=== PATIENT | female | born 1980 | race Caucasian/White ===

== ENCOUNTER 2019-01-28 23:51 | Emergency (ER) | payer MEDICAID ==
[~2019-01-28] VITALS: Ht 149.9 cm; Wt 49.0 kg
[2019-01-28 23:55] VITALS: BP_SYST 124
[2019-01-29] MEDS ORDERED: IPRATROPIUM/ALBUTEROL SULFATE 3 ML AMPUL.NEB (DUONEB) INH ONE ×3 (00:30→02:00)
[2019-01-29] MEDS ORDERED: IPRATROPIUM/ALBUTEROL SULFATE 3 ML AMPUL.NEB (DUONEB) ONE (00:31)
[2019-01-29] MEDS ORDERED: methylPREDNISolone SOD SUCC/PF 62.5 MG/ML VIAL IM ONE (01:00)
[2019-01-29 04:09] VITALS: BP_SYST 122
== END 2019-01-29 04:09 | disposition home or self-care (01) ==
LOC: SED 23:51
DX: J45.901 Unspecified asthma with (acute) exacerbation (principal)
CPT/HCPCS: 71045; 81025; 94640; 96372; 99285; J2930; J7620; 99283; 99284

== ENCOUNTER 2019-11-01 16:31 | Emergency (ER) | payer MEDICAID ==
[~2019-11-01] VITALS: Ht 149.9 cm; Wt 54.4 kg
[2019-11-01 16:31] VITALS: BP_SYST 118
[2019-11-01] MEDS ORDERED: methylPREDNISolone SOD SUCC/PF 62.5 MG/ML VIAL IVP ONE (16:45)
[2019-11-01] MEDS ORDERED: ACETAMINOPHEN 500 MG TABLET PO ONE (16:45)
[2019-11-01] MEDS ORDERED: ALBUTEROL MDI INHALATION 8 GM INH INH ONE (16:45)
[2019-11-01] MEDS ORDERED: IPRATROPIUM BROM 0.5 MG/2.5 ML VIAL.NEB (ATROVENT) INH ONE (17:00)
[2019-11-01] MEDS ORDERED: ALBUTEROL SULFATE 0.083% 2.5 MG/3 ML VIAL.NEB INH ONE ×2 (17:00→18:45)
[2019-11-01 17:34] LABS: HEMATOCRIT 39.1 % (36-48); MEAN CORPUSCULAR HEMOGLOBIN 30 pg (27-31); MEAN CORPUSCULAR HGB CONC 33 % (32-36); MEAN CORPUSCULAR VOLUME 91 fL (79.0-98.0); PLATELET COUNT (AUTO) 423 K/uL (130-430); RED BLOOD CELL COUNT(AUTO) 4.33 MIL/uL (4.2-6.2); RED CELL DISTRIBUTION WIDTH 13.1 % (9.0-15.0); WHITE BLOOD COUNT (AUTO) 16.9 K/uL (4.8-10.8)
[2019-11-01 18:31] LABS: CALCIUM 8.5 mg/dL (8.4-11.0); CREATININE 0.63 mg/dL (0.55-1.30)
[2019-11-01 19:15] VITALS: BP_SYST 121
== END 2019-11-01 19:15 | disposition home or self-care (01) ==
LOC: SED 16:31
DX: J45.901 Unspecified asthma with (acute) exacerbation (principal); R06.02 Shortness of breath
CPT/HCPCS: 36415; 71045; 80048; 85025; 94640; 96374; 99284; J2930; J7613

== ENCOUNTER 2020-04-13 00:54 | Inpatient (IN) | payer MEDICAID, SELFPAY ==
[~2020-04-13] VITALS: Ht 152.4 cm; Wt 44.5 kg
[2020-04-13 00:54] VITALS: BP_SYST 128
--- NOTE | 2020-04-13 00:54 | NUR ---
Patient to ER bed 07 to gown for evaluation. Side rails up. Report given to GAETANO Rosario
--- NOTE | 2020-04-13 01:00 | NUR ---
# 20 gauge angiocath placed to RAC. Use of asceptic technique. Opsite placed over site. Blood return noted. Blood for lab drawn from site. Flushed with 10 cc of normal saline. No evidence of infiltration noted. Patient tolerated well.
--- NOTE | 2020-04-13 01:05 | NUR ---
ER at bedside examining patient.
--- NOTE | 2020-04-13 01:06 | NUR ---
Pt biba c/o L arm pain x 1 week. Pt reports using meth and noticing L arm pain w/ swelling and recent increase in chills. Pt L arm appears swollen, redness, and fluid like d/c. L arm is warm to touch. Pt rates pain 10/10. Denies fever, CP, sick contacts. NKA.
[2020-04-13] MEDS ORDERED: MORPHINE 2 MG/ML INJ. SYRINGE IVP ONE (01:15)
[2020-04-13] MEDS ORDERED: VANCOMYCIN HCL 1,000 MG in D5W 250 ML IV ONE (01:15)
[2020-04-13] MEDS ORDERED: NACL 0.9% 1,000 ML IV ONE (01:30)
[2020-04-13 01:37] LABS: HEMATOCRIT 34.6 % (36-48); HEMOGLOBIN 11.3 g/dL (12.0-16.0); MEAN CORPUSCULAR HEMOGLOBIN 29 pg (27-31); MEAN CORPUSCULAR HGB CONC 33 % (32-36); MEAN CORPUSCULAR VOLUME 88 fL (79.0-98.0); PLATELET COUNT (AUTO) 386 K/uL (130-430); RED BLOOD CELL COUNT(AUTO) 3.93 MIL/uL (4.2-6.2); RED CELL DISTRIBUTION WIDTH 14.1 % (9.0-15.0); WHITE BLOOD COUNT (AUTO) 25.5 K/uL (4.8-10.8)
--- NOTE | 2020-04-13 01:40 | NUR ---
Radiology at bedside.
[2020-04-13] MEDS ORDERED: VANCOMYCIN HCL 1000 MG/VIAL IV ONE (01:45)
[2020-04-13 01:50] LABS: CALCIUM 8.3 mg/dL (8.4-11.0); CREATININE 0.61 mg/dL (0.55-1.30); POTASSIUM 3.3 mmol/L (3.5-5.1)
[2020-04-13 01:54] LABS: PROTHROMBIN TIME 9.9 SECS (9.5-12.5)
[2020-04-13 01:55] LABS: ALBUMIN 2.6 g/dL (3.4-4.8); TOTAL BILIRUBIN 0.5 mg/dL (0.0-1.0)
[2020-04-13 02:16] LABS: ATYPICAL LYMPHOCYTES % 0 % (0-0); BAND % (MANUAL) 0 % (0-6); BASOPHILS % (MANUAL) 0 % (0-2); EOSINOPHILS % (MANUAL) 1 % (0-7); LYMPHOCYTES % (MANUAL) 8 % (20-46); MONOCYTES % (MANUAL) 1 % (0-11)
[2020-04-13 02:30] LABS: BILIRUBIN,URINE 1+ (NEGATIVE); BLOOD, URINE 2+ (NEGATIVE); CLARITY/URINE CLEAR (CLEAR); COLOR,URINE YELLOW (YELLOW); GLUCOSE,URINE NEGATIVE (NEGATIVE); KETONES,URINE TRACE (NEGATIVE); LEUKOCYTE ESTERASE ,URINE NEGATIVE (NEGATIVE); NITRITE, URINE NEGATIVE (NEGATIVE); PH,URINE 5.5 (5.0-8.0); PROTEIN URINE TRACE (NEGATIVE)
[2020-04-13] MEDS ORDERED: NS 500 ML IV ONE (02:30)
[2020-04-13 02:39] LABS: BACTERIA,URINE FEW /HPF (None Seen); CALCIUM OXALATE CRYSTALS,UR 0-10 /HPF (None Seen); WBC,URINE 0-3 /HPF (0-3)
--- NOTE | 2020-04-13 02:48 | NUR ---
Patient will be admitted to care of Admitted to tele unit. Belongings list completed. Complete and up to date summary report printed. SBAR report to be given at bedside with opportunity for questions.
--- NOTE | 2020-04-13 02:59 | NUR ---
EEnd of life care decisions discussed with PATIENT by Dr. BUI. Opportunity for questions and concerns addressed. Patient's code status is DNR paperwork completed and placed in chart.
[2020-04-13] MEDS ORDERED: POTASSIUM CHLORIDE 20 MEQ/PKT PACKET PO ONE (03:00)
[2020-04-13] MEDS ORDERED: MORPHINE 2 MG/ML INJ. SYRINGE IVP PRN (03:00)
[2020-04-13] MEDS ORDERED: ONDANSETRON HCL 4 MG/2 ML VIAL IVP PRN (03:00)
--- NOTE | 2020-04-13 03:23 | NUR ---
ADMISSION NOTE Received patient from ER via gurney. Patient admitted with diagnosis of CELLULITIS. Patient is awake, alert, oriented X 4. Patient oriented to hospital room, call light, toileting, pain management and safety-teach back done. Patient informed that AFFIE will be nurse and that their room number is 112B. Personal belongings checked and Belongings List documented. Call light within reach.
[2020-04-13 03:31] VITALS: BP_SYST 107
[2020-04-13] MEDS: NACL 0.9% 1,000 ML IV SCH ×2 (03:43→13:39)
[2020-04-13] MEDS: ACETAMINOPHEN 325 MG TABLET PO PRN ×3 (04:30→19:44)
--- NOTE | 2020-04-13 05:10 | NUR ---
CONSULTATION PAGED/CALLED Reason for Consultation: CELLULITIS Person Who was Notified: MACK Consulting Physician: JOSE Reconcilement Clerk Specialty:ID Ordering Physician: MITCHELL
--- NOTE | 2020-04-13 06:03 | NUR ---
RN ROUNDS: PATIENT IS AWAKE, ALERT AND ORIENTED X 4. REPORTS PAIN IN L ARM, RATES PAIN 3/10. PATIENT BREATHING UNLABORED AND EVEN. NO S/S ACUTE DISTRESS AT THIS TIME.IVF INFUSING AT ORDERED RATE, NO SIGN OF INFILTRATION NOTED. SAFETY AND FALL PRECAUTIONS MAINTAINED. CALL LIGHT IS WITH PATIENT. WILL ENDORSE PATIENT CARE TO DAY SHIFT RN.
--- NOTE | 2020-04-13 07:30 | NUR ---
Opening Note patient in bed a/o x4, no signs of distress noted, respirations even and unlabored, bed locked and at low position, call light within reach, fall and aspiration precautions put in place.
[2020-04-13 08:45] VITALS: BP_SYST 99
[2020-04-13] MEDS ORDERED: PANTOPRAZOLE SODIUM 40 MG/VIAL (PROTONIX) IVP SCH (09:00)
--- NOTE | 2020-04-13 09:27 | NUR ---
RN Rounds/Medications patient laying in bed, administered medications ordered per MD, patient tolerated well, safety measures maintained.
[2020-04-13] MEDS: CLINDAMYCIN 600 MG in D5W 50 ML IV SCH ×2 (09:51→15:14)
[2020-04-13 11:30] VITALS: BP_SYST 98
--- NOTE | 2020-04-13 11:56 | NUR ---
RN Rounds patient ambulated to restroom with no problem, no other needs at this time, safety precautions maintained.
[2020-04-13] MEDS ORDERED: VANCOMYCIN HCL 500 MG in NS 100 ML IV SCH (12:00)
--- NOTE | 2020-04-13 12:26 | NUR ---
[employer]: COMMERCIAL DRIVER'S LICENSE DRIVER received a homeless drug useage referral COMMERCIAL DRIVER'S LICENSE DRIVER met with pt. bedside. She was amenable to this interview. She maintained eye contact. Her answers coordinated with the questions and at times seemed emotional. Pt. confirmed the demographics on the face sheet. She confirmed that she is homeless with her for the past year. They stay in the car in various locations such as the [facility]. 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 She uses heroine. In the past she stated she uses various drugs. Pt. also has asthma and has her albuterol. When asked if she had ever participated in a sober living or detox program, pt. stated she was in assisted for a misdemeanor and it was during this time that she had to participate in a sober program (associated with her incarceration). Pt. did not want to state why she was in assisted. Pt. stated she has used drugs for many years. She did state she has had various times of sobriety. A couple of times she has been sober for up to 6-7 years at a time. She came to [place] about a year and a half from [place]. Her family is in [place]. Her husbands family is her local to [place]. She said when they moved here there were so many stressors. She had been sober, but her and her started out by using Xanax and then she began using drugs again. She has two adult children and one younger child who resides out of state with her older brother. When asked about mental health, pt. stated at one time she had been Dx. with Depression and Anxiety and was prescribed medication which she no longer takes. During this time, Rn came into the room. Pt. and COMMERCIAL DRIVER'S LICENSE DRIVER shared with her about pts. recollection re. mental health and the meds and asked Rn. if she could share with Dr. Ram. Rn mad a note of this. COMMERCIAL DRIVER'S LICENSE DRIVER shared with pt. numerous resources including, a homeless resource packet and showed pt. where she can look and call to find a PCP. MW shared with pt. homeless [facility] resources, and substance abuse resources. Lastly COMMERCIAL DRIVER'S LICENSE DRIVER explained to pt. about the MH component and advised pt. it would be beneficial to pt. Pt. agreed and stated she will take a look at all the resources. COMMERCIAL DRIVER'S LICENSE DRIVER gave pt. a business card as well. COMMERCIAL DRIVER'S LICENSE DRIVER will remain available as needed. Addendum: 04/13/20 at 1437 by Lori Presley COMMERCIAL DRIVER'S LICENSE DRIVER [employer]: note addition When asked pt. denied feeling suicidal at this time. She did state in the past she had been suicidal. When asked about interventions, pt. stated she began taking antidepressants.
--- NOTE | 2020-04-13 13:44 | NUR ---
RN Rounds Patient laying in bed, no signs of distress noted, administered medication ordered per MD, patient tolerated well, safety precautions maintained.
[2020-04-13 15:50] VITALS: BP_SYST 102
[2020-04-13] MEDS ORDERED: IBUPROFEN 400 MG TABLET PO PRN (17:30)
[2020-04-13] MEDS ORDERED: ACETAMINOPHEN 325 MG TABLET PO PRN (17:30)
[2020-04-13] MEDS ORDERED: POTASSIUM CHLORIDE 20 MEQ TAB.PRT.SR PO ONE (17:30)
--- NOTE | 2020-04-13 17:40 | NUR ---
MD Rounds Dr. Ram at bedside assessing patient.
[2020-04-13] MEDS ORDERED: ALBUTEROL MDI INHALATION 8 GM INH INH PRN (18:15)
--- NOTE | 2020-04-13 18:54 | NUR ---
Closing Note patient in bed a/o x4, no signs of distress noted, respirations even and unlabored, bed locked and at low position, call light within reach, fall and aspiration precautions maintained through out shift, patient care endorse to director of promotions nurse.
--- NOTE | 2020-04-13 19:15 | NUR ---
change of shift.pt.presents quiescent affect;calm,resting.pt.presents lt.upper extremity/hand edematous.wound noted @fossa. iv fluids infusing.pt.had inquired if she was to be d/c home.i appirsed the pt.that i am to review the 's orders.call light/telephone placed w/in access of the pt.
--- NOTE | 2020-04-13 19:30 | NUR ---
i reviewed martin's orders. did not provide d/c home orders.i have apprised the pt.pt.stated she wanted to go home.pt.requested pain medication. Addendum: 04/14/20 at 0206 by Brian Bird RN i have administered tylenol:650mg po.to assess the efficacy of the pain medication per pain mgx protocol.
[2020-04-13 20:00] VITALS: BP_SYST 102
--- NOTE | 2020-04-13 20:00 | NUR ---
pt.assessed.v/s assessed values w/in normal limits.i have provided the ama form sheet.i have d/c the iv access.i have d/c the sd id-band. nsg/pt.to review/account for pertenences.pt.stated security was provided w pertenences upon admission;to f/u w security.
--- NOTE | 2020-04-13 20:30 | NUR ---
pt.has signed the ama form sheet.i have witnessed the pt's signing.nsg/pt.accounted for pertenences;security provided pt's pertenences w/in security hold.security apprised of the pt's departure ama status.dr.chari young apprised of the pt's departure ama status.i have accompanied the pt.to the front lobby/doors.pt.accompanied in stable status.
[2020-04-14] MEDS ORDERED: FAMOTIDINE 20 MG TABLET PO SCH (09:00)
[2020-04-14] MEDS ORDERED: SERTRALINE HCL 50 MG TABLET PO SCH (09:00)
== END 2020-04-13 20:25 | disposition left against medical advice (07) | DRG 383 ==
LOC: SED 00:54 → STU 02:51
PROVIDERS: ADMIT Internal Medicine; ATTEND Internal Medicine
DX: L03.114 Cellulitis of left upper limb (principal); E43 Unspecified severe protein-calorie malnutrition; E87.1 Hypo-osmolality and hyponatremia; Z68.1 Body mass index [BMI] 19.9 or less, adult; E87.6 Hypokalemia; F11.20 Opioid dependence, uncomplicated; Z20.828 Contact with and (suspected) exposure to other viral communicable diseases; F32.9 Major depressive disorder, single episode, unspecified; J45.909 Unspecified asthma, uncomplicated; F19.10 Other psychoactive substance abuse, uncomplicated; Z53.29 Procedure and treatment not carried out because of patient's decision for other reasons; E87.2 Acidosis
CPT/HCPCS: 36415; 71045; 80053; 81000-TC; 83605; 85007; 85027; 85610-TC; 85730-TC; 87040-TC; 87081; 93005; 96365; 96366; 96375; 99285; C9113; G0378; J2270; J3370; J3490; J7030; J7040; J7060

== ENCOUNTER 2020-04-27 21:02 | Emergency (ER) | payer MEDICAID, SELFPAY ==
[~2020-04-27] VITALS: Ht 152.4 cm; Wt 45.4 kg
[2020-04-27 21:08] VITALS: BP_SYST 147
[2020-04-27] MEDS ORDERED: IPRATROPIUM/ALBUTEROL SULFATE 3 ML AMPUL.NEB (DUONEB) INH ONE (21:15)
[2020-04-27 22:15] VITALS: BP_SYST 147
== END 2020-04-27 22:15 ==
LOC: SED 21:02
DX: J45.901 Unspecified asthma with (acute) exacerbation (principal); Z20.828 Contact with and (suspected) exposure to other viral communicable diseases
CPT/HCPCS: 36415; 71045; 94640; 99284

== ENCOUNTER 2020-05-27 08:37 | Emergency (ER) | payer MEDICAID, SELFPAY ==
[~2020-05-27] VITALS: Ht 152.4 cm; Wt 45.4 kg
[2020-05-27 08:37] VITALS: BP_SYST 123
[2020-05-27] MEDS ORDERED: IPRATROPIUM/ALBUTEROL SULFATE 3 ML AMPUL.NEB (DUONEB) INH ONE ×3 (08:45→09:00)
[2020-05-27] MEDS ORDERED: predniSONE 20 MG TABLET PO ONE (09:00)
[2020-05-27 09:29] LABS: BASOPHILS % (AUTO) 0.4 % (0.0-2.0); EOSINOPHILS # (AUTO) 1.4 K/uL (0.0-0.4); EOSINOPHILS % (AUTO) 13.6 % (0.0-4.0); HEMATOCRIT 39.1 % (36-48); HEMOGLOBIN 12.3 g/dL (12.0-16.0); LYMPHOCYTES # (AUTO) 2.6 K/uL (1.0-5.5); LYMPHOCYTES % (AUTO) 26.1 % (20.5-51.5); MEAN CORPUSCULAR HEMOGLOBIN 29 pg (27-31); MEAN CORPUSCULAR HGB CONC 32 % (32-36); MEAN CORPUSCULAR VOLUME 90 fL (79.0-98.0); MONOCYTES # (AUTO) 0.7 K/uL (0.0-1.0); NEUTROPHILS # (AUTO) 5.3 K/uL (1.8-7.7); NEUTROPHILS % (AUTO) 52.9 % (40.0-70.0); PLATELET COUNT (AUTO) 324 K/uL (130-430); RED BLOOD CELL COUNT(AUTO) 4.34 MIL/uL (4.2-6.2); RED CELL DISTRIBUTION WIDTH 13.8 % (9.0-15.0)
[2020-05-27 09:44] LABS: CALCIUM 8.4 mg/dL (8.4-11.0); CREATININE 0.59 mg/dL (0.55-1.30); POTASSIUM 3.7 mmol/L (3.5-5.1)
[2020-05-27 11:47] VITALS: BP_SYST 123
== END 2020-05-27 11:47 | disposition home or self-care (01) ==
LOC: SED 08:37
DX: J45.901 Unspecified asthma with (acute) exacerbation (principal)
CPT/HCPCS: 36415; 71045; 80048; 81025; 84484; 85025; 93005; 94640; 99285; J7512